=== PATIENT | female | born 1965 | race Caucasian/White ===

== ENCOUNTER 2017-05-25 11:48 | Inpatient (IN) | payer MEDICAID, OTHER ==
[2017-05-25] MEDS ORDERED: BISACODYL 10 MG SUPP PR PRN (13:36)
[2017-05-25] MEDS ORDERED: POLYETHYLENE GLYCOL 3350 17 GM PKT PO PRN (13:36)
[2017-05-25] MEDS ORDERED: ACETAMINOPHEN 325 MG TAB PO PRN (13:36)
[2017-05-25] MEDS ORDERED: MAGNESIUM HYDROXIDE 30 ML UDCUP PO PRN (13:36)
[2017-05-25] MEDS ORDERED: ONDANSETRON DISINTEGRATING 4 MG TAB PO PRN (13:36)
[2017-05-25] MEDS ORDERED: LACTULOSE 20 GM/30 ML UDCUP PO PRN (13:36)
[2017-05-25] MEDS ORDERED: ONDANSETRON 4 MG/2 ML VIAL IVP PRN (13:36)
[2017-05-25 14:13] LABS: PLATELET COUNT 246 10^3/uL (150-400)
[2017-05-25] MEDS ORDERED: IOPAMIDOL (ISOVUE-300) 100 ML BTL ONE (14:37)
[2017-05-25] MEDS: NS 1,000 ML IV SCH (15:45)
[2017-05-25] MEDS ORDERED: Rizatriptan Benzoate [Maxalt] 10 MG PO PRN (17:06)
[2017-05-25] MEDS ORDERED: GABAPENTIN 400 MG CAP PO PRN (17:06)
[2017-05-25] MEDS ORDERED: GABAPENTIN 300 MG CAP PO PRN (17:18)
[2017-05-25] MEDS ORDERED: ALBUTEROL 200 PUFFS/18 GM MDI IH PRN (17:30)
[2017-05-25] MEDS: oxyCODONE IR 15 MG TAB PO SCH ×2 (17:35→21:20)
--- NOTE | 2017-05-25 19:10 | SOAPPROG ---
SOAP Progress Note Assessment/Plan: Assessment: Plan: 05/25/17 19:17 Abdominal pain: Admitted for further evaluation. CT scan done earlier today suggestive of mass. Full report not yet dictated, but is not strongly suggestive of diverticulitis. Remains afebrile and WBC normal. Will contact GI tomorrow for colonoscopy. Will change to clear liquid diet. Heme positive stool: likely related to CT findings. No anemia on yesterday's labs, but mild anemia today, likely dilutional. TBI: remote hx, but she will have some difficulty speaking at times, especially when anxious. She has been on disability for many years. Takes Concerta 36mg 2 each morning, but that is not available here and she didn't bring in her own medication. Will try ritalin SR 40mg in the morning, which is about 1/2 the equivalent dose, per pharmacy, and see how she does. She reports that she hasn' t felt well on ritalin in the past, but that may have been the rapid acting form. Chronic pain: this is managed with oxycodone 15 mg qid, neurontin 300mg 3-4 times daily, and baclofen 20mg daily Migraine: currently without WILBURN. Takes Maxalt prn Depression: On Lexapro 20mg daily Anxiety: on clonazepam .5mg 1-2 tabs bid Asthma: well-controlled on QVAR with prn albuterol, which she rarely needs DVT Prophylaxis: will use SCDS Dispo: anticipate minimum of 2 MN 05/25/17 19:20 05/25/17 19:26 05/25/17 19:29 05/25/17 19:29 Subjective: 51 yo woman with hx chronic pain, TBI, anxiety, and depression was seen in the office yesterday c/o rectal bleeding. She had been having loose stool, with stool having a "shredded" appearance, with mucus and blood since , associated with significant abdominal pain, especially on the left side. Appetite was off and she had lost about 6 lbs. She felt nauseated, but hadn't vomited. She had chills but no fever. On exam, she looked ill, had diffuse abdominal pain, worse in the LLQ, and heme positive stool. An attempt was made to place an IV to give her some fluids and to do CT scan in the office, but we weren't able to get IV access. Offered hospital admission at the time, but she declined. She returned to the office today, and another attempt was made to obtain IV access, but was again unsuccessful, so she is being admitted for further evaluation due to ongoing abdominal pain. She hasn't had any diarrhea today. She did have a colonoscopy in 2010 that was normal, and didn't show diverticula. Her CBC and CMP in the office yesterday were normal. Objective: Vital Signs Temp Pulse Resp BP Pulse Ox 37.1 C 70 18 89/51 L 92 05/25/17 16:43 05/25/17 16:43 05/25/17 16:43 05/25/17 16:43 05/25/17 16:43 Laboratory Results 05/25/17 14:00 05/25/17 14:00 General: ill-appearing, in pain, NAD HEENT:NC/AT. Scalp without lesions. PERRL, EOMI. Auditory canals clear, TMs without erythema. Sinuses NT bilaterally. O/P moist, no lesions Neck: no cervical lymphadenopathy, thyroid NT Cardiovascular: RRR without murmur Lungs: clear bilaterally Breasts: no dimpling, fibrocystic texture without dominant mass, no nipple discharge Abdomen: normal bowel sounds present, soft, non-distended. Diffusely tender but worse in LLQ. No hepatosplenomegaly, mass noted Rectal: no external hemorrhoids, normal tone, no masses, stool maroon colored, heme positive Musculoskeletal: R hand with mild swelling in joints, no erythema Extremities: no clubbing, cyanosis, edema Neurologic: more alert today compared to yesterday, speech as times difficult to understand but no change from usual, moving all extremities Psychiatric: alert, oriented, cognitive function at baseline, mood/affect slightly dull for her ICD10 Worksheet Patient Problems: Problems Problem Status Onset Abdominal pain Acute
[2017-05-25] MEDS: BECLOMETHASONE QVAR 40 MDI IH SCH (20:05)
--- NOTE | 2017-05-25 20:25 | GHP ---
[f rep st] HISTORY AND PHYSICAL DATE OF ADMISSION: 05/25/2017 HISTORY OF PRESENT ILLNESS: The patient is a 51-year-old woman with a history of chronic pain, traum atic brain injury, anxiety and depression, who was seen in the office yesterday complaining of rectal bleeding. She had been having loose stool with stool having a "shredded" appearance with mucus and blood since , associated with significant abdominal pain, especially on the left side. Her appetite was off, and she had lost about 6 pounds. She felt nauseated but had not vomited. She had chills but no fever. On exam, she was ill-appearing and had diffuse abdominal pain, worse in the left lower quadrant, and heme-positive stool. An attempt was made to place an IV to give her some f luids and to do a CT scan in the office, but we were not able to obtain IV access. Offered hospital admission at the time, but she declined. She returned to the office today, and another attempt was m tennille to obtain IV access but was again unsuccessful, so she is being admitted for further evaluation d ue to ongoing abdominal pain. She has not had any diarrhea today but continues to feel nauseated. S he did have a colonoscopy in 2010 that was normal and did not show diverticula. Her CBC and CMP in t he office yesterday were normal. PAST MEDICAL HISTORY: Significant for anxiety, asthma, chronic bronchitis, chronic pain, depression, dystonia, GERD, head injury, migraine, rotator cuff syndrome, paresthesias, syncope. MEDICATIONS: Maxalt APPLICATION SUPPORT TECHNICIAN 10 mg dispersible on tongue as needed, QVAR 40 mcg 2 puffs by inhalation twi a day, gabapentin 300 mg p.o. t.i.d., baclofen 10 mg 2 tablets daily, Concerta 36 mg 2 tablets in the morning, oxycodone 15 mg q.i.d., Lexapro 20 mg daily, clonazepam 0.5 mg 1-2 tablets by mouth twic a day, albuterol inhaler 2 puffs every 4-6 hours as needed. ALLERGIES: Penicillin and Flexeril causes a headache. SURGICAL HISTORY: Bladder suspension, carpal tunnel release, foot surgery, hand surgery, ASHKAN-BSO. FAMILY HISTORY: Not obtained. SOCIAL HISTORY: The patient lives alone and is on disability. REVIEW OF SYSTEMS: GENERAL: No fever. She does acknowledge chills, weight loss, and fatigue. HEEN T: Decreased vision in the left eye. Right ear pain. No headache currently. No sinus congestion o r sore throat. Chronic rhinitis. CARDIAC: No chest pain, although she is noticing an occasional sh jadiel chest pain when her abdomen is particularly painful. No irregular heartbeats or chest pressure. LUNGS: No shortness of breath, but it does hurt to take a deep breath. No cough or wheezing. GI: Nausea without vomiting, as noted. Abdominal pain. Diarrhea as noted in HPI. No heartburn. Blood in the stool, as noted above : No dysuria or hematuria. MOOD: No depression or anxiety. She burgess s had some trouble sleeping due to pain. ENDOCRINE: No heat or cold intolerance. MUSCULOSKELETAL: She has chronic pain but is also noticing some swelling, in her right hand in particular, without er ythema. NEUROLOGIC: History of migraines, but no headache currently. Occasionally notices some num bness in her left leg. No tingling or weakness. SKIN: She has intermittent rashes and has noted so me on her scalp. BREASTS: No masses, but has noted some occasional milky nipple discharge. GYNECOL OGIC: No vaginal itching, odor, or bleeding. PHYSICAL EXAMINATION: VITAL SIGNS: Blood pressure is 100/72, heart rate 75, respiratory rate 20, O2 saturation 94% on room air, temperature 36.6. GENERAL: She is ill appearing, in pain, but no acute distress. HEENT: Normocephalic, atraumatic. Scalp without skin lesions. Pupils equal, round, ming ctive to light. Extraocular movements are intact. Auditory canals are clear. TMs without erythema. Sinuses are nontender bilaterally. Oropharynx is moist with no lesions. NECK: No cervical adenop athy. Thyroid nontender. CARDIOVASCULAR: Regular rate and rhythm without murmur. LUNGS: Clear bi laterally. BREASTS: No dimpling. Fibrocystic texture without dominant mass. No nipple discharge. ABDOMEN: Normal bowel sounds are present. Soft, nondistended. Diffusely tender, but worse in the left lower quadrant. No hepatosplenomegaly or mass noted. RECTAL: No external hemorrhoids. Normal tone. No masses. Stool maroon-colored and heme-positive. MUSCULOSKELETAL: Right hand with mild s welling in joints. No erythema. EXTREMITIES: No clubbing, cyanosis, or edema. NEUROLOGIC: More a lert today compared to yesterday. Speech at times is somewhat difficult to understand, but no change from usual. Moving all extremities. PSYCHIATRIC: Alert and oriented. Cognitive function at basel ine. Mood/affect is slightly dull for her. ASSESSMENT AND PLAN: 1. Abdominal pain. Admitted for further evaluation. CT scan done earlier today is suggestive of ma ss. Full report not yet dictated, but is not strongly suggestive of diverticulitis. She remains afe brile, and white blood cell count is normal. Will contact GI tomorrow for colonoscopy. Will change her to clear liquid diet tonight. 2. Heme-positive stool, likely related to CT findings. No anemia on yesterday's labs, but mildly an emic today, likely dilutional. 3. Traumatic brain injury. Remote history, but she will sometimes have difficulty speaking, especia lly when she is anxious. She has been on disability for many years. She takes Concerta 36 mg 2 tabl ets every morning, but that is not available, and she did not bring in her own medication. The Katharine rta helps her focus. Will try substituting Ritalin SR 40 mg in the morning, which is about half the equivalent dose per pharmacy of her 2 tabs of Concerta. Will see how she does with it. She reports that she has not felt well on Ritalin in the past, but that may have been the rapid-acting form. 4. Chronic pain. This is managed with oxycodone 15 mg q.i.d., Neurontin 300 mg 3-4 times a day, and baclofen 20 mg daily. 5. Migraine. Currently without headache. Maurilio works p.r.n. 6. Depression. On Lexapro 20 mg daily. Will continue. 7. Anxiety. On clonazepam 0.5 mg 1-2 tablets twice daily. 8. Asthma. Well controlled on QVAR with p.r.n. albuterol, which she rarely needs. 9. Deep venous thrombosis prophylaxis. Will use sequential compression stockings. DISPOSITION: Anticipate minimum of 2-midnight stay. /[id number]/MODL
[2017-05-25] MEDS: GABAPENTIN 300 MG CAP PO SCH (21:19)
[2017-05-25] MEDS: clonazePAM 1 MG TAB PO SCH (21:19)
[2017-05-25] MEDS: BACLOFEN 10 MG TAB PO SCH (21:19)
[2017-05-25] MEDS: SENNOSIDES/DOCUSATE SODIUM TAB PO SCH (21:21)
[2017-05-26] MEDS: NS 1,000 ML IV SCH ×4 (04:23→19:36)
[2017-05-26 04:50] LABS: PLATELET COUNT 243 10^3/uL (150-400)
[2017-05-26] MEDS: oxyCODONE IR 15 MG TAB PO SCH ×5 (05:39→21:07)
[2017-05-26] MEDS: ESCITALOPRAM OXALATE 10 MG TAB PO SCH (08:24)
[2017-05-26] MEDS: GABAPENTIN 300 MG CAP PO SCH ×3 (08:24→21:07)
[2017-05-26] MEDS: clonazePAM 1 MG TAB PO SCH ×2 (08:24→21:08)
[2017-05-26] MEDS: SENNOSIDES/DOCUSATE SODIUM TAB PO SCH ×2 (08:28→21:11)
[2017-05-26] MEDS ORDERED: NON-FORMULARY NEW DRUG (Escitalopram Oxalate [Lexapro] 20 MG) PO SCH (09:00)
[2017-05-26] MEDS ORDERED: METHYLPHENIDATE SR 20 MG TAB.SR PO SCH (09:00)
[2017-05-26] MEDS: BECLOMETHASONE QVAR 40 MDI IH SCH ×2 (09:02→21:34)
--- NOTE | 2017-05-26 09:10 | SOAPPROG ---
SOAP Progress Note Assessment/Plan: Assessment: Plan: 05/25/17 19:17 Abdominal pain: Admitted for further evaluation. CT scan done earlier today suggestive of mass. Full report not yet dictated, but is not strongly suggestive of diverticulitis. Remains afebrile and WBC normal. Will contact GI tomorrow for colonoscopy. Will change to clear liquid diet. Heme positive stool: likely related to CT findings. No anemia on yesterday's labs, but mild anemia today, likely dilutional. TBI: remote hx, but she will have some difficulty speaking at times, especially when anxious. She has been on disability for many years. Takes Concerta 36mg 2 each morning, but that is not available here and she didn't bring in her own medication. Will try ritalin SR 40mg in the morning, which is about 1/2 the equivalent dose, per pharmacy, and see how she does. She reports that she hasn' t felt well on ritalin in the past, but that may have been the rapid acting form. Chronic pain: this is managed with oxycodone 15 mg qid, neurontin 300mg 3-4 times daily, and baclofen 20mg daily Migraine: currently without WILBURN. Takes Maxalt prn Depression: On Lexapro 20mg daily Anxiety: on clonazepam .5mg 1-2 tabs bid Asthma: well-controlled on QVAR with prn albuterol, which she rarely needs DVT Prophylaxis: will use SCDS Dispo: anticipate minimum of 2 MN 05/25/17 19:20 05/25/17 19:26 05/25/17 19:29 05/25/17 19:29 05/26/17 09:10 Abdominal pain: somewhat worse this morning. CT scan concerning for malignancy. Am waiting for call back from GI to advise of consult request. Will also ask surgery to consult. TBI: Would like her Concerta, which helps her make decisions. She will have her friend bring it in from home. Subjective: LLQ pain is increased this morning. Nauseated but not vomiting. Having mucoid BM without much stool. Had her dose of oxycodone this morning and it didn't change her pain. Substituted methylphenidate ER for Concerta but she refused it. Doesn't like how she feels with it. Objective: Vital Signs Temp Pulse Resp BP Pulse Ox 36.5 C 61 18 112/67 94 05/26/17 08:00 05/26/17 08:00 05/26/17 08:00 05/26/17 08:00 05/26/17 08:00 Laboratory Results 05/26/17 04:19 05/25/17 14:00 05/25/17 05/26/17 05/27/17 05:59 05:59 05:59 Intake Total 500 Balance 500 General: awake, alert, tearful, in pain Lungs: clear Cardiovascular: RRR with occasional ectopy Abdomen: positive bowel sounds, soft, non-distended. Diffusely tender, worst in LLQ Extremities: no edema ICD10 Worksheet Patient Problems: Problems Problem Status Onset Abdominal pain Acute
--- NOTE | 2017-05-26 14:59 | GCON ---
[f rep st] CONSULTATION DATE OF CONSULTATION: 05/26/2017 CHIEF COMPLAINT: LLQ abdominal pain with suspicious mass on CT scan with bloody stools. HISTORY OF PRESENT ILLNESS: This is a 51-year-old female, who is admitted to the hospital, now hospital day 2, with abdominal pain and a mass finding on a CT scan. Briefly, the patient states that over the last month she has had increasing malaise and fatigue, culminating to the point where she has had worsening nausea and vomiting, and now over the past few days with differing stool appearances, complaining of blood and mucus since Lisa in her stools, having a shredded appearance. Patient initially contacted the on-call doctor, who happened to be her PCP, and saw her in clinic. The patient also has home care seeing her, given her underlying medical illnesses. It was recommended that she go to the emergency department on , but she refused given the holiday and subsequently went the day after. At any rate, since being here she states that her pain is a little bit better controlled. She states that she is no longer passing any blood per rectum, but is still having yellow mucus and clear fluid when she has bowel movements. Her pain is rated as a 4/10 in the left lower quadrant without radiation, better with inactivity and better with bowel rest. The pain is described as burning sensation. Other than the pain and complaints of now mucus and yellow discharge from her rectum, she has no complaints. She currently denies having nausea or vomiting, and states that she has not had any fevers or chills. PAST MEDICAL HISTORY: Anxiety, asthma, chronic bronchitis, chronic pain, depression, dystonia, GERD, history of traumatic brain injury, migraines, rotator cuff syndrome, paresthesias, and syncope. PAST SURGICAL HISTORY: Bladder suspension, carpal tunnel release, foot surgery , hand surgery, and a total abdominal hysterectomy with bilateral salpingo- oophorectomy. No previous history of colon surgery. She did have a colonoscopy in 2010 that was done for abdominal pain, which was normal. CURRENT MEDICATIONS: Reviewed in [facility]. ALLERGIES: Penicillin and Flexeril. SOCIAL HISTORY: Lives alone and on disability given her traumatic brain injury. Denies illicit drug use. FAMILY HISTORY: She believes that she had an aunt who had breast cancer, but is pretty certain that she had no primary relatives with any colorectal cancer. REVIEW OF SYSTEMS: A full 10-point review was performed and, unless explicitly stated above, is otherwise negative. PHYSICAL EXAMINATION: VITAL SIGNS: Blood pressure 112/67, heart rate 61, she is 94% on room air, and her temperature is 36.5. CONSTITUTIONAL: She is in no apparent distress. She appears comfortable. EYES: Her pupils are equal, round , and reactive to light and accommodation. Her extraocular movements are intact. EARS, NOSE, MOUTH, THROAT: She has dry mucous membranes. Her hearing is normal. Her speech is somewhat slurred secondary to her head injury. CARDIOVASCULAR: She has a regular rate and rhythm without murmur. RESPIRATORY : She is clear to auscultation bilaterally without distress. GI: She has normoactive bowel sounds. She is soft, nondistended. She is minimally tender in the left lower quadrant, without rebound tenderness or guarding. RECTAL: Examination was performed. I do not appreciate any masses or any blood on my examining finger. Rectal tone is normal. Hemorrhoids normal. No fissures. SKIN: Warm. Normal color. No rashes or abrasions. Multiple tattoos on her upper extremities. MUSCULOSKELETAL: Full strength. No weakness. Normal joint range of motion. NEUROLOGIC: She is alert and oriented x3. Her cranial nerves 2-12 are intact. She has no weakness, no numbness. PSYCH: She is interacting appropriately. She does not appear anxious. She is not encephalopathic. LYMPH/HEME/IMMUNOLOGIC: There is no cervical, groin, or supraclavicular lymphadenopathy appreciated. LABS: White blood cell count normal at 6. H and H stable at 12 and 35. Chemistry is largely unremarkable. CT scan of the abdomen and pelvis performed yesterday, the images of which were personally reviewed, show really limited findings. She did receive oral contrast. There does appear to be a thickening in the sigmoid colon. There does not appear to be any surrounding diverticular disease in any of the colon really. ASSESSMENT AND PLAN: A 51-year-old female with bleeding per rectum and suspicious findings on CT scan. I discussed my physical exam findings with the patient today, and did tell her that she would need further studies to better elucidate what is going on. I did tell her that the first step would be preparation for colonoscopy, as a colonoscopy would give us a better idea as to what this is, and would also be able to give us biopsies to give us a tissue diagnosis. I told her that at this point in time she does not appear obstructed and/or have any complication from this mass, but that if it is worrisome and/or if the pathology would prove cancer, she would need resection, and we briefly discussed this today. All questions were answered. I will plan to follow up with her once the colonoscopy is completed, but don't feel as though urgent surgical intervention is warranted as the patient is stable, and has no worrisome findings (free air, impending obstruction) on her CT scan. /[id number]/MODL MTDD
--- NOTE | 2017-05-26 16:05 | ASMTCMCOM ---
CM Note CM Note Notes: Pt admitted for abd pain. Ct scan suggestive of mass. Colonoscopy is planned tomorrow. C/M will continue to follow for DC needs. Date Signed: 05/26/2017 04:04 PM Electronically Signed By:Leti Acosta LCSW
[2017-05-26] MEDS ORDERED: PEG 3350/NA SULF,BICARB,CL/KCL (GAVILYTE-G) 4000 ML BTL PO ONE (20:00)
--- NOTE | 2017-05-26 20:15 | GCON ---
[f rep st] CONSULTATION DATE OF CONSULTATION: 05/26/2017 REFERRING PHYSICIAN: Isela Hampton MD CHIEF COMPLAINT: Abdominal pain. Dear Dr. Hampton: Thank you very kindly for asking me to evaluate the patient for abdominal pain. She is a very pleasa nt, 51-year-old female with a history of chronic pain and a traumatic brain injury, who presents with episodes of bright red hematochezia, left lower quadrant abdominal pain, and a recent CT scan that s hows some sigmoid colonic thickening. She did have a colonoscopy in 2010 for screening which was unr emarkable. There is no family history of colon cancer. She says the bleeding has now stopped but sh e continues to have some mild left-sided discomfort associated with urgency, tenesmus, and the passag e of mucus but no stool. She says she feels a bit bloated. There has been no nausea, vomiting, or f ever. She denies any recent antibiotics. I am asked to assist with further evaluation and managemen t. PAST MEDICAL HISTORY: 1. Significant for chronic pain. 2. Traumatic brain injury. 3. Anxiety. 4. Depression. 5. Heartburn. 6. Chronic migraine headaches. PAST SURGICAL HISTORY: ASHKAN/BSO for ovarian cystic disease, carpal tunnel release, and bladder suspen monika. MEDICATIONS: On admission include Maxalt, QVAR, gabapentin, baclofen, Concerta, clonazepam, oxycodon e, albuterol. ALLERGIES: Penicillin, Flexeril. FAMILY HISTORY: Negative for colon cancer, diverticular disease or colitis. SOCIAL HISTORY: The patient is on disability. She lives alone. No active tobacco or substance abus e. REVIEW OF SYSTEMS: GENERAL: 6-pound weight loss in the last month. HEENT/NECK: Chronic headaches. No active headache. No neck pain. No difficulty swallowing. No epistaxis. No rhinorrhea. No to ngue pain or dry mouth. PULMONARY: No cough or shortness of breath. CARDIOVASCULAR: No chest pain or palpitations. GI: She denies heartburn actively or dysphagia, but does have a history of heartb urn. There is some nausea but no vomiting. She denies any melena otherwise per the HPI. Rheumatolo gic: Significant for chronic musculoskeletal pain. GENITOURINARY: Denies hematuria or dysuria. GREG MATOLOGIC: Denies rash, jaundice. ENDOCRINE: Denies heat or cold intolerance. PSYCHIATRIC: She r eports a history of depression or anxiety but feels safe and pretty normal, and at her baseline menta lly and emotionally. HEMATOLOGIC: No epistaxis or bruising. LYMPH: Denies any glandular swelling. PHYSICAL EXAM: VITAL SIGNS: Blood pressure 112/67, heart rate is 61, respirations are 18, temperatu re 36.5, oxygenation is 94% on room air. GENERAL: Thin female in no acute distress. HEENT: Normoce phalic, atraumatic. Sclerae are anicteric. Oropharynx clear. Mucous membranes are dry. NECK: Sup ple. No adenopathy or carotid bruit. No thyromegaly. PULMONARY: Clear to auscultation bilaterally with good respiratory exchange. No rales or wheeze. CARDIOVASCULAR: Regular rate and rhythm without murmur, rub, or gallop. GI: There is tenderness to palpation in the left lower quadrant that is mild without rebound or guarding. No palpable mass or lesion. Bowel sounds are normoactive. The abdomen is nondistended. No ascites, organomegaly or bru it. MUSCULOSKELETAL: Normal gait and station without joint deformity, swelling or warmth. DERMATOL OGIC: Tattoos but no jaundice or rash. NEURO: Alert to person, place, and time. Cranial nerves no rmal. Motor nonfocal. No asterixis. DATABASE: Includes the following laboratory: White count 6.4, hematocrit 34.9, MCV is 90, platelets are 243. Sodium 144, potassium 4.8, chloride 109, bicarbonate 29, BUN 6, creatinine 0.6, glucose 84 , total bilirubin 0.3, calcium 9.7, AST 21, ALT 33, alkaline phosphatase 46, total protein 6.0, album in 3.8. IMAGING: Includes a CT scan of the abdomen and pelvis on May 25, 2017: Findings reveal the josey er is normal without lesion. The bile ducts are not dilated. The gallbladder is without stones or s ludge and no wall thickening. The spleen is normal. The pancreas is unremarkable without mass or du ctal dilatation. There is mild thickening of the left adrenal gland without a nodule. There are 2 s ites of focal wall thickening in the sigmoid colon without pericolonic stranding. There are no abnor belen dilated loops of bowel. No adenopathy. IMPRESSION: 1. Left lower quadrant abdominal pain. 2. Hematochezia. 3. Weight loss. 4. Abnormal CT scan showing mild thickening of the sigmoid colon. RECOMMENDATIONS: 1. A clear liquid diet today. 2. Gallon GoLYTELY prep in split fashion. 3. Colonoscopy with anesthesia tomorrow in the early afternoon. 4. N.p.o. after clear liquid breakfast and bowel cleanse completed. 5. I believe she likely has either a false positive radiographic finding of colonic thickening or pe rhaps the other type of "colitis" could be ischemic. It is unlikely that she has malignancy represen ting this, but I cannot completely exclude this possibility. 6. Further recommendations to follow her colonoscopy tomorrow. 7. The patient is agreeable to the plan. /[id number]/MODL
[2017-05-26] MEDS: BACLOFEN 10 MG TAB PO SCH (21:08)
[2017-05-27] MEDS: NS 1,000 ML IV SCH ×2 (02:52→09:16)
[2017-05-27] MEDS: oxyCODONE IR 15 MG TAB PO SCH ×4 (05:18→20:51)
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
[2017-05-27] MEDS: BECLOMETHASONE QVAR 40 MDI IH SCH ×2 (08:02→20:59)
[2017-05-27] MEDS: ESCITALOPRAM OXALATE 10 MG TAB PO SCH (09:06)
[2017-05-27] MEDS: SENNOSIDES/DOCUSATE SODIUM TAB PO SCH ×2 (09:07→23:45)
[2017-05-27] MEDS: clonazePAM 1 MG TAB PO SCH ×2 (09:07→20:51)
[2017-05-27] MEDS: GABAPENTIN 300 MG CAP PO SCH ×3 (09:07→20:51)
[2017-05-27] MEDS ORDERED: LR 1,000 ML IV ONE (13:03)
[2017-05-27] MEDS ORDERED: fentaNYL 100 MCG/2 ML INJ ONE (13:40)
[2017-05-27] MEDS ORDERED: DIAZEPAM 10 MG/2 ML SYR IVP PRN (13:48)
[2017-05-27] MEDS ORDERED: fentaNYL 100 MCG/2 ML INJ IVP PRN (13:48)
[2017-05-27] MEDS ORDERED: DEXAMETHASONE 4 MG/ML VIAL IVP PRN (13:48)
[2017-05-27] MEDS ORDERED: ONDANSETRON 4 MG/2 ML VIAL IVP PRN (13:48)
[2017-05-27] MEDS ORDERED: NALOXONE HCL 0.4 MG/ML INJ IVP PRN (13:48)
--- NOTE | 2017-05-27 13:48 | PDANEPAE ---
ANE Past Medical History - Pulmonary History Hx Oxygen in Use at Home: No Hx Sleep Apnea: No Sleep Apnea Screening Result - Last Documented: Positive - Endocrine History Hx Diabetes: No - Chronic Pain History Chronic Pain: Yes ANE Review of Systems Review of Systems: ANE Patient History - Allergies Allergies/Adverse Reactions: cyclobenzaprine Allergy (Verified 05/25/17 13:34) Penicillins Allergy (Verified 05/25/17 13:34) - Home Medications Home Medications: Albuterol [Proventil Inhaler HFA (*)] 2 puffs IH Q4-6PRN PRN 05/25/17 [Last Taken Unknown] Baclofen [Baclofen 10 mg (*)] 20 mg PO HS 05/25/17 [Last Taken 05/24/17] Beclomethasone Qvar 40 [Qvar 40 (*)] 2 puffs IH BID 05/25/17 [Last Taken ] Escitalopram Oxalate [Lexapro] 20 mg PO DAILY 05/25/17 [Last Taken 05/25/17] Gabapentin [Neurontin 400 MG (*)] 1,200 - 1,800 mg PO HS PRN 05/25/17 [Last Taken 05/24/17] Rizatriptan Benzoate [Maxalt 10mg] 10 mg PO ONETIMEPRN PRN 05/25/17 [Last Taken Unknown] clonazePAM [klonoPIN (*)] 0.5 - 1 mg PO TID 05/25/17 [Last Taken 05/25/17] oxyCODONE IR [Oxycodone Ir (*)] 15 mg PO QID 05/25/17 [Last Taken 05/25/17] - NPO status NPO Since - Liquids (Date): 05/27/17 NPO Since - Liquids (Time): 12:32 NPO Since - Solids (Date): 05/26/17 NPO Since - Solids (Time): 18:00 - Smoking Hx Smoking Status: Current some day smoker ANE Labs/Vital Signs - Labs Result Diagrams: 05/26/17 04:19 05/25/17 14:00 - Vital Signs Blood Pressure: 127/68 Heart Rate: 80 Respiratory Rate: 16 O2 Sat (%): 94 Height: 157.48 cm Weight: 46.72 kg ANE Physical Exam - Airway Neck exam: FROM Mallampati Score: Class 1 Mouth exam: dentures - Pulmonary Pulmonary: no respiratory distress, no rales or rhonchi, reduced air movement - Cardiovascular Cardiovascular: regular rate and rhythym, no murmur, rub, or gallop - ASA Status ASA Status: III ANE Anesthesia Plan Anesthesia Plan: GA with mask
[2017-05-27] MEDS ORDERED: LIDOCAINE 2% 5 ML SDV ONE (13:56)
[2017-05-27] MEDS ORDERED: epHEDrine SULFATE 10 MG/ML SYR ONE (13:56)
--- NOTE | 2017-05-27 14:05 | GIREPORT ---
Formerly [facility] Surgical Services - Endoscopy Department Patient Name: Roxanne Barrios Procedure Date: 05/27/2017 1:20 PM Patient Type: Outpatient Attending MD/ ER Physician: Jeff Weber MD Procedure: Colonoscopy Indications: Abdominal pain in the left lower quadrant, Abnormal CT of the GI tract Providers: Jeff Weber MD Medicines: Propofol per Anesthesia Complications: No immediate complications. Description of Procedure: After obtaining informed consent, the scope was passed under direct vis ion. Throughout the procedure, the patient's blood pressure, pulse, and oxyg en saturations were monitored continuously. The Colonoscope was introduced through the anus and advanced to the cecum, identified by appendiceal orifice and ileocecal valve. The colonoscopy was performed without difficulty. The patient tolerated the procedure well. The quality of th e bowel preparation was excellent. The ileocecal valve, appendiceal orifi ce, and rectum were photographed. Findings: The perianal and digital rectal examinations were normal. Pertinent negatives include normal sphincter tone and no palpable rectal lesions. A segmental area of moderately congested, erythematous, eroded and gran ular mucosa was found in the sigmoid colon. Biopsies were taken with a cold forceps for histology. The exam was otherwise without abnormality. Estimated Blood Loss: Estimated blood loss: none. Post Op Diagnosis: - Congested, erythematous, eroded and granular mucosa in the sigmoid co adeola. Biopsied. - The examination was otherwise normal. - I feel the findings are most consistent with ischemic colitis. Will n eed to await biopsy results. Recommendation: - Await pathology results. - Return patient to hospital li for ongoing care. - Advance diet as tolerated. - Ok for discharge once stable. - Thank you for allowing me to be involved in the care of your patient. Attending Participation: I personally performed the entire procedure without the assistance of a fellow, resident or surg ical fitter's assistant. Jeff Weber MD Jeff Weber MD 05/27/2017 2:04:28 PM This report has been signed electronicallyDavid MD Tia Number of Addenda: 0 Note Initiated On: 05/27/2017 1:20 PM Total Procedure Duration Time 0 hours 15 minutes 58 seconds [email or web address]
--- NOTE | 2017-05-27 14:17 | POSTANESTH ---
Post Anesthetic Evaluation Cardiovascular Status: Normal, Stable Respiratory Status: Normal, Stable Level of Consciousness/Mental Status: Can Participate in Eval Pain Control: Adequate, Prn Tx Ordered Nausea/Vomiting Control: Adequate, Prn Tx Ordered Complications Possibly Related to Anesthesia: None Noted
[2017-05-27] MEDS: BACLOFEN 10 MG TAB PO SCH (20:52)
[2017-05-28] MEDS: oxyCODONE IR 15 MG TAB PO SCH ×4 (04:46→22:07)
[2017-05-28] MEDS: clonazePAM 1 MG TAB PO SCH ×2 (08:43→22:08)
[2017-05-28] MEDS: GABAPENTIN 300 MG CAP PO SCH ×3 (08:43→22:08)
[2017-05-28] MEDS: ESCITALOPRAM OXALATE 10 MG TAB PO SCH (08:43)
[2017-05-28] MEDS: BECLOMETHASONE QVAR 40 MDI IH SCH ×2 (08:45→20:15)
--- NOTE | 2017-05-28 09:53 | SOAPPROG ---
SOAP Progress Note Assessment/Plan: Assessment: Colon inflammation on endoscopy, biopsy pending. Plan: Await biopsy. Continue with support. ;Advance diet. Ambulate. 05/28/17 09:52 Subjective: Having some soreness from the colonoscopy, however generally doing OK. Was able to eat breakfast this morning. Objective: Vital Signs Temp Pulse Resp BP Pulse Ox 98.0 F 54 L 14 122/64 H 94 05/28/17 09:00 05/28/17 09:00 05/28/17 09:00 05/28/17 09:00 05/28/17 09:00 Laboratory Results 05/26/17 04:19 05/25/17 14:00 05/27/17 05/28/17 05/29/17 05:59 05:59 05:59 Intake Total 850 2538 Balance 850 2538 Lungs clear to asc. COR RRR. Abd mildly sore. ICD10 Worksheet Patient Problems: Problems Problem Status Onset Abdominal pain Acute
[2017-05-28] MEDS: SENNOSIDES/DOCUSATE SODIUM TAB PO SCH ×2 (10:45→22:08)
[2017-05-28] MEDS: BACLOFEN 10 MG TAB PO SCH (22:07)
[2017-05-29] MEDS: oxyCODONE IR 15 MG TAB PO SCH ×4 (06:32→22:44)
[2017-05-29] MEDS: BECLOMETHASONE QVAR 40 MDI IH SCH ×2 (08:32→22:25)
--- NOTE | 2017-05-29 09:13 | SOAPPROG ---
SOAP Progress Note Assessment/Plan: Assessment: 51 year old with abdominal pain Thickening of sigmoid on CT Colonoscopy with changes more consistent with ischemia Biopsies pending I think she will likely need surgical intervention as she complains of string stools and has persistent pain. Will await biopsy results S: Not hungry. Some cramping after eating General: Pleasant woman lying in bed HENT: Normocephalic, no gross hearing deficits, pupils equal and round, no scleral icterus Lungs: Clear to auscultation bilaterally, No increased work of breathing Cardiac: Regular rate, no peripheral edema Abdomen: Bowel sounds present, soft, tender in LLQ Skin: Warm and dry. Psych: Mood and affect normal, slightly blunted Neuro: Grossly intact Plan: 05/29/17 09:11 05/29/17 09:14 Objective: Vital Signs Temp Pulse Resp BP Pulse Ox 36.8 C 52 L 16 106/65 91 L 05/29/17 08:52 05/29/17 08:52 05/29/17 08:52 05/29/17 08:52 05/29/17 08:52 Laboratory Results 05/26/17 04:19 05/25/17 14:00 05/28/17 05/29/17 05/30/17 05:59 05:59 05:59 Intake Total 2538 1200 Balance 2538 1200 ICD10 Worksheet Patient Problems: Problems Problem Status Onset Abdominal pain Acute
[2017-05-29] MEDS: clonazePAM 1 MG TAB PO SCH ×2 (09:33→22:44)
[2017-05-29] MEDS: ESCITALOPRAM OXALATE 10 MG TAB PO SCH (09:33)
[2017-05-29] MEDS: GABAPENTIN 300 MG CAP PO SCH ×3 (09:33→22:44)
[2017-05-29] MEDS: SENNOSIDES/DOCUSATE SODIUM TAB PO SCH ×2 (09:33→22:44)
--- NOTE | 2017-05-29 09:37 | ASMTCMCOM ---
CM Note CM Note Notes: 05/29/2017 Case Management Note Reviewed chart. Case Management d/c needs remain unclear. Pt may require surgical intervention pending biopsy results. There are no PT or OT evals ordered at this time. Case Management d/c poc: TBD Case Management to follow. Date Signed: 05/29/2017 09:37 AM Electronically Signed By:Heather Brownlee RN
--- NOTE | 2017-05-29 11:25 | SOAPPROG ---
SOAP Progress Note Assessment/Plan: Assessment: Colon inflammation on endoscopy, biopsy pending. Plan: Await biopsy. Continue with support. ;Advance diet. Ambulate. 05/28/17 09:52 Subjective: Still having pain. No BM for a couple of days. Appetite is OK but not great. Objective: Vital Signs Temp Pulse Resp BP Pulse Ox 98.2 F 52 L 16 106/65 91 L 05/29/17 08:52 05/29/17 08:52 05/29/17 08:52 05/29/17 08:52 05/29/17 08:52 Laboratory Results 05/26/17 04:19 05/25/17 14:00 05/28/17 05/29/17 05/30/17 05:59 05:59 05:59 Intake Total 2538 1200 250 Balance 2538 1200 250 Lungs clear to asc. COR RRR. Abd with bowel sounds, however tender over RLQ. BIopsy pendin. ICD10 Worksheet Patient Problems: Problems Problem Status Onset Abdominal pain Acute
[2017-05-29] MEDS: BACLOFEN 10 MG TAB PO SCH (22:44)
[2017-05-30] MEDS: oxyCODONE IR 15 MG TAB PO SCH ×4 (06:36→20:24)
[2017-05-30] MEDS: SENNOSIDES/DOCUSATE SODIUM TAB PO SCH ×2 (09:24→23:11)
[2017-05-30] MEDS: clonazePAM 1 MG TAB PO SCH ×2 (09:24→20:24)
[2017-05-30] MEDS: GABAPENTIN 300 MG CAP PO SCH ×3 (09:24→20:25)
[2017-05-30] MEDS: ESCITALOPRAM OXALATE 10 MG TAB PO SCH (09:24)
--- NOTE | 2017-05-30 09:39 | SOAPPROG ---
SOAP Progress Note Assessment/Plan: Assessment: 51 year old with abdominal pain Thickening of sigmoid on CT Colonoscopy with changes more consistent with ischemia Biopsies pending S: Still some cramping after food. General: Pleasant woman sitting up and appears much better Plan: 05/29/17 09:11 05/29/17 09:14 05/30/17 09:38 Objective: Vital Signs Temp Pulse Resp BP Pulse Ox 36.7 C 56 L 16 106/63 92 05/30/17 08:00 05/30/17 08:00 05/30/17 08:00 05/30/17 08:00 05/30/17 08:00 Laboratory Results 05/26/17 04:19 05/25/17 14:00 05/29/17 05/30/17 05/31/17 05:59 05:59 05:59 Intake Total 1200 4100 Balance 1200 4100 ICD10 Worksheet Patient Problems: Problems Problem Status Onset Abdominal pain Acute
[2017-05-30] MEDS: BECLOMETHASONE QVAR 40 MDI IH SCH ×2 (11:23→19:56)
--- NOTE | 2017-05-30 19:11 | SOAPPROG ---
SOAP Progress Note Assessment/Plan: Assessment: Colon inflammation on endoscopy, biopsy pending. Plan: Await biopsy. Continue with support. ;Advance diet. Ambulate. 05/28/17 09:52 Subjective: pain is a little worse today. Objective: Vital Signs Temp Pulse Resp BP Pulse Ox 97.9 F 64 16 129/76 H 94 05/30/17 16:05 05/30/17 16:05 05/30/17 16:05 05/30/17 16:05 05/30/17 16:05 Laboratory Results 05/26/17 04:19 05/25/17 14:00 05/29/17 05/30/17 05/31/17 05:59 05:59 05:59 Intake Total 1200 4100 250 Balance 1200 4100 250 Lungs clear. there is some LLQ abdominal pain with percussion of posterior pelvis. COR RRR ICD10 Worksheet Patient Problems: Problems Problem Status Onset Abdominal pain Acute
[2017-05-30] MEDS: BACLOFEN 10 MG TAB PO SCH (20:24)
[2017-05-31] MEDS: oxyCODONE IR 15 MG TAB PO SCH ×4 (05:49→20:07)
[2017-05-31] MEDS: SENNOSIDES/DOCUSATE SODIUM TAB PO SCH ×2 (08:27→22:21)
[2017-05-31] MEDS: ESCITALOPRAM OXALATE 10 MG TAB PO SCH (08:27)
[2017-05-31] MEDS: clonazePAM 1 MG TAB PO SCH ×2 (08:27→20:07)
[2017-05-31] MEDS: GABAPENTIN 300 MG CAP PO SCH ×3 (08:28→20:07)
--- NOTE | 2017-05-31 09:00 | SOAPPROG ---
SOS[facility] Progress Note Assessment/Plan: Assessment/Plan: - LLQ pain persists, biopsies pending - Path results will help guide surgery oncologic versus non. But if her pain doesnt improve will need resection for that reason alone. 05/31/17 08:59 Subjective: Still having a significant amount of abdominal pain Objective: Vital Signs Temp Pulse Resp BP Pulse Ox 36.7 C 50 L 14 92/54 L 95 05/31/17 05:43 05/31/17 05:43 05/31/17 05:43 05/31/17 05:43 05/31/17 05:43 Laboratory Results 05/26/17 04:19 05/25/17 14:00 05/30/17 05/31/17 06/01/17 05:59 05:59 05:59 Intake Total 4100 1250 Balance 4100 1250 ICD10 Worksheet Patient Problems: Problems Problem Status Onset Abdominal pain Acute
[2017-05-31] MEDS: BECLOMETHASONE QVAR 40 MDI IH SCH ×2 (09:55→21:11)
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
[2017-05-31] MEDS ORDERED: Rizatriptan Benzoate [Maxalt] 10 MG PO PRN (16:00)
[2017-05-31] MEDS: BACLOFEN 10 MG TAB PO SCH (20:07)
[2017-05-31] MEDS: LORazepam 1 MG TAB PO ONE ×2 (20:49→20:51)
[2017-05-31] MEDS ORDERED: DIAZEPAM 2 MG TAB PO ONE (21:00)
[2017-05-31] MEDS ORDERED: oxyCODONE IR 5 MG TAB PO PRN (21:10)
[2017-06-01] MEDS: oxyCODONE IR 15 MG TAB PO SCH ×3 (05:34→17:10)
--- NOTE | 2017-06-01 09:13 | SOAPPROG ---
SOAP Progress Note Assessment/Plan: Assessment: Plan: 05/25/17 19:17 Abdominal pain: Admitted for further evaluation. CT scan done earlier today suggestive of mass. Full report not yet dictated, but is not strongly suggestive of diverticulitis. Remains afebrile and WBC normal. Will contact GI tomorrow for colonoscopy. Will change to clear liquid diet. Heme positive stool: likely related to CT findings. No anemia on yesterday's labs, but mild anemia today, likely dilutional. TBI: remote hx, but she will have some difficulty speaking at times, especially when anxious. She has been on disability for many years. Takes Concerta 36mg 2 each morning, but that is not available here and she didn't bring in her own medication. Will try ritalin SR 40mg in the morning, which is about 1/2 the equivalent dose, per pharmacy, and see how she does. She reports that she hasn' t felt well on ritalin in the past, but that may have been the rapid acting form. Chronic pain: this is managed with oxycodone 15 mg qid, neurontin 300mg 3-4 times daily, and baclofen 20mg daily Migraine: currently without WILBURN. Takes Maxalt prn Depression: On Lexapro 20mg daily Anxiety: on clonazepam .5mg 1-2 tabs bid Asthma: well-controlled on QVAR with prn albuterol, which she rarely needs DVT Prophylaxis: will use SCDS Dispo: anticipate minimum of 2 MN 05/25/17 19:20 05/25/17 19:26 05/25/17 19:29 05/25/17 19:29 05/26/17 09:10 Abdominal pain: somewhat worse this morning. CT scan concerning for malignancy. Am waiting for call back from GI to advise of consult request. Will also ask surgery to consult. TBI: Would like her Concerta, which helps her make decisions. She will have her friend bring it in from home. 06/01/17 09:11 Abdominal pain: persistant, not so well managed by her usual oxycodone regimen, but worried about taking more and then potentially withdrawing once she goes home. Will talk with Dr. Hairston today regarding potential for surgery. 06/01/17 09:13 Subjective: Tearful and frustrated this morning. Continues to have abdominal pain. Pathology not that remarkable, but pain persists. Stools now mostly mucus. Objective: Vital Signs Temp Pulse Resp BP Pulse Ox 36.5 C 62 12 97/42 L 92 05/31/17 15:04 05/31/17 15:04 05/31/17 21:12 05/31/17 15:04 05/31/17 21:12 Laboratory Results 05/26/17 04:19 05/25/17 14:00 05/31/17 06/01/17 06/02/17 05:59 05:59 05:59 Intake Total 1250 1100 Balance 1250 1100 General: awake, alert, tearful Lungs: clear CV: RRR without murmur Abdomen: +bowel sounds, soft, tender LLQ Extremities: no edema ICD10 Worksheet Patient Problems: Problems Problem Status Onset Abdominal pain Acute
[2017-06-01 09:49] VITALS: RESP 16
[2017-06-01] MEDS: GABAPENTIN 300 MG CAP PO SCH ×2 (10:12→17:10)
[2017-06-01] MEDS: clonazePAM 1 MG TAB PO SCH (10:12)
[2017-06-01] MEDS: SENNOSIDES/DOCUSATE SODIUM TAB PO SCH (10:12)
[2017-06-01] MEDS: ESCITALOPRAM OXALATE 10 MG TAB PO SCH (10:13)
[2017-06-01] MEDS: BECLOMETHASONE QVAR 40 MDI IH SCH ×2 (10:27→10:56)
--- NOTE | 2017-06-01 10:42 | SOAPPROG ---
SOAP Progress Note Assessment/Plan: Assessment/Plan: - still having pain but able to walk and tolerating diet, pain "in left groin" this AM - path underwhelming, showed nothing frankly pathologic. - Ordered CT with PO and IV contrast, also ordered stool PCR given eosinophils in path but with mucus in stool could be parasite versus other infectious etiology - 05/31/17 08:59 06/01/17 10:41 Subjective: still having pain Objective: Vital Signs Temp Pulse Resp BP Pulse Ox 37.1 C 74 16 129/61 H 93 06/01/17 09:45 06/01/17 09:45 06/01/17 09:45 06/01/17 09:45 06/01/17 09:45 Laboratory Results 05/26/17 04:19 05/25/17 14:00 05/31/17 06/01/17 06/02/17 05:59 05:59 05:59 Intake Total 1250 1100 Balance 1250 1100 ICD10 Worksheet Patient Problems: Problems Problem Status Onset Abdominal pain Acute
--- NOTE | 2017-06-01 10:52 | ASMTCMCOM ---
CM Note CM Note Notes: Patient still complaining of abdominal pain although pathology has been unremarkable. An abdominal CT with PO and IV contrast is ordered for today, as well as a stool PCR to r/o infectious etiology. Patient is ambulating and tolerating PO. Independent discharge anticipated, but CM available for any needs. Date Signed: 06/01/2017 10:51 AM Electronically Signed By:Nancy Ansari RN
[2017-06-01] MEDS ORDERED: IOPAMIDOL (ISOVUE-300) 100 ML BTL ONE (12:30)
--- NOTE | 2017-06-01 16:24 | ASMTCMCOM ---
CM Note CM Note Notes: This patient became a very complicated case today. First, her son called me and said that he has been repeatedly told that someone would call him regarding his mother's condition. I took his number (which was incorrect in the patient's demographics, is correct now) and gave it to his RN Aliyah and left a message for Dr Hairston, asking them both to call him. I then was told by multiple RNs on the floor - and it was unclear if this was their opinion or that of the patient - that patient has been staying in the hospital simply to await a biopsy result, which she could be doing at home. They wondered if something could be done to address this. My understanding from today's provider notes was that patient was to have an abdomen CT to address her ongoing pain issues. I then was asked by KIRIT Valenzuela to call patient's private pay RN/friend Maryana Phelan for the above reasons. I called Maryana who told me that patient has been upset, doesn't know why she's there, is racking up thousands of dollars in debt, and could be better off taking her medications and waiting for biopsy results at home. I assured Maryana that I would have a financial counselor follow up with patient (I spoke to Lilia in who will f/u with patient) and that I would have her screened for KEENAN (referral sent to [facility]). I also told Maryana we would call her when patient was discharged. I then spoke with Dr Isela Hampton to try and understand this case better. She said that awaiting biopsy results were not the only reason patient had been kept inpatient but also to address her uncharacteristic pain control issues. She said that she and Dr Hairston needed to discuss today's CT results and that patient would likely be discharged tomorrow. Finally, I went to talk to patient herself. She began to immediately perseverate on the fact that on one was telling her or had told her anything about her condition. She thought I was witholding information from her, she said that no one told her anything about her CT results, and she became emotional and aggressive. It was difficult to communicate to her, although I tried to tell her that I had spoken with her son and her friend/RN Maryana. I explained to patient that I was trying to coordinate her care with her family and doctors, but she wasn't able to hear me. Due to my inability to calm patient down, I had to leave the room. I paged the patient customer assistance representative twice but did not hear back. CM will follow up tomorrow. Date Signed: 06/01/2017 04:23 PM Electronically Signed By:Nancy Ansari RN
[2017-06-01 17:11] VITALS: BP 135/85; PULSE 53; TEMP 97.8; O2SAT 95
--- NOTE | 2017-06-01 17:18 | SOAPPROG ---
SOAP Progress Note Assessment/Plan: Assessment: Plan: 05/25/17 19:17 Abdominal pain: Admitted for further evaluation. CT scan done earlier today suggestive of mass. Full report not yet dictated, but is not strongly suggestive of diverticulitis. Remains afebrile and WBC normal. Will contact GI tomorrow for colonoscopy. Will change to clear liquid diet. Heme positive stool: likely related to CT findings. No anemia on yesterday's labs, but mild anemia today, likely dilutional. TBI: remote hx, but she will have some difficulty speaking at times, especially when anxious. She has been on disability for many years. Takes Concerta 36mg 2 each morning, but that is not available here and she didn't bring in her own medication. Will try ritalin SR 40mg in the morning, which is about 1/2 the equivalent dose, per pharmacy, and see how she does. She reports that she hasn' t felt well on ritalin in the past, but that may have been the rapid acting form. Chronic pain: this is managed with oxycodone 15 mg qid, neurontin 300mg 3-4 times daily, and baclofen 20mg daily Migraine: currently without WILBURN. Takes Maxalt prn Depression: On Lexapro 20mg daily Anxiety: on clonazepam .5mg 1-2 tabs bid Asthma: well-controlled on QVAR with prn albuterol, which she rarely needs DVT Prophylaxis: will use SCDS Dispo: anticipate minimum of 2 MN 05/25/17 19:20 05/25/17 19:26 05/25/17 19:29 05/25/17 19:29 05/26/17 09:10 Abdominal pain: somewhat worse this morning. CT scan concerning for malignancy. Am waiting for call back from GI to advise of consult request. Will also ask surgery to consult. TBI: Would like her Concerta, which helps her make decisions. She will have her friend bring it in from home. 06/01/17 09:11 Abdominal pain: persistant, not so well managed by her usual oxycodone regimen, but worried about taking more and then potentially withdrawing once she goes home. Will talk with Dr. Hairston today regarding potential for surgery. 06/01/17 09:13 Subjective: Addendum to previous note: Extended discussion with pt regarding CT results, which are improved from the original scan done on admission. She doesn't have a surgical issue at this point, though is still having pain. PCR was negative for infection. I've discussed possible discharge with Dr. Hairston, and with pt. She is in agreement with this. I will increase her pain medication for now, and hopefully the need for the extra medication will resolve as her colon heals. She is no longer having any blood per rectum. Sx appear most likely related to colitis, and this appears to be resolving on CT scan. I will see her in the office on Jun 08. Dr. Weber would like to see her in 6 weeks to discuss follow up colonoscopy. Objective: Vital Signs Temp Pulse Resp BP Pulse Ox 36.7 C 75 16 132/71 H 92 06/01/17 15:43 06/01/17 15:43 06/01/17 15:43 06/01/17 15:43 06/01/17 15:43 Microbiology 06/01/17 11:27 Gastrointestinal Tract Panel (PCR) - Final Stool No Organism Detected Laboratory Results 05/26/17 04:19 05/25/17 14:00 05/31/17 06/01/17 06/02/17 05:59 05:59 05:59 Intake Total 1250 1100 Balance 1250 1100 ICD10 Worksheet Patient Problems: Problems Problem Status Onset Abdominal pain Acute
--- NOTE | 2017-06-02 06:16 | GDS ---
[f rep st] DISCHARGE SUMMARY DISCHARGE DIAGNOSIS: Abdominal pain, sigmoid colitis. CONSULTATIONS: Gastroenterology, Dr. Weber; surgery, Dr. Hairston. HOSPITAL COURSE: Please see HPI for full details. The patient was admitted for abdominal pain. A CT scan done on admission showed focal wall thickening involving the sigmoid colon. GI was consulted and colonoscopy performed. An area of the sigmoid colon showed moderately congested erythematous eroded granular mucosa concerning for possible ischemic colitis. Surgery was thus consulted as well. The patient's pain persisted. Unfortunately, her biopsy results took several days to return, but subsequently only showed a very minimal abnormality. Thus, a CT scan was repeated on June 01, which showed significant improvement in the sigmoid wall thickening consistent with improving sigmoid colitis. Surgery was not felt to be necessary. These findings were reviewed extensively with the patient and she is in agreement with discharge. Unfortunately, her pain is not much improved yet, so we will give additional pain medications for breakthrough and follow closely as an outpatient. She will follow up with me next week in the office and in [address] Weber for possible repeat colonoscopy. /[id number]/MODL MTDD
--- NOTE | 2017-06-02 12:32 | ASDISCHSUM ---
Discharge Information Plan Status:Has needs-TBD Medically Cleared to Leave: Discharge Date:06/01/2017 05:53 PM CM D/C Disposition: ADT D/C Disposition:Home, Routine, Self-Care Projected Discharge Date:06/01/2017 05:53 PM Transportation at D/C: Discharge Delay Reason: Follow-Up Date:06/01/2017 05:53 PM Discharge Slot: Final Diagnosis: Placement Information Patient Contact Information Contact Name:ABE Relationship:Shaq Address: Work Phone: City: [facility] Phone: State/Zip Code: Email: Financial Information Financial Class:Medicare Advantage Plans Primary Plan Desc:[facility] ADVANTAGE PLANS Primary Plan Number:[id number] Secondary Plan Desc: Secondary Plan Number: Assessment Information BC CM Progress Note CM Note CM Note Notes: Pt admitted for abd pain. Ct scan suggestive of mass. Colonoscopy is planned tomorrow. C/M will continue to follow for DC needs. Date Signed: 05/26/2017 04:04 PM Electronically Signed By:Leti Acosta LCSW [facility] CM Progress Note CM Note CM Note Notes: 05/29/2017 Case Management Note Reviewed chart. Case Management d/c needs remain unclear. Pt may require surgical intervention pending biopsy results. There are no PT or OT evals ordered at this time. Case Management d/c poc: TBD Case Management to follow. Date Signed: 05/29/2017 09:37 AM Electronically Signed By:Heather Brownlee RN [facility] CM Progress Note CM Note CM Note Notes: Patient still complaining of abdominal pain although pathology has been unremarkable. An abdominal CT with PO and IV contrast is ordered for today, as well as a stool PCR to r/o infectious etiology. Patient is ambulating and tolerating PO. Independent discharge anticipated, but CM available for any needs. Date Signed: 06/01/2017 10:51 AM Electronically Signed By:Nancy Ansari RN [facility] Progress Note CM Note CM Note Notes: This patient became a very complicated case today. First, her son called me and said that he has been repeatedly told that someone would call him regarding his mother's condition. I took his number (which was incorrect in the patient's demographics, is correct now) and gave it to his RN Aliyah and left a message for Dr Hairston, asking them both to call him. I then was told by multiple RNs on the floor - and it was unclear if this was their opinion or that of the patient - that patient has been staying in the hospital simply to await a biopsy result, which she could be doing at home. They wondered if something could be done to address this. My understanding from today's provider notes was that patient was to have an abdomen CT to address her ongoing pain issues. I then was asked by KIRIT Valenzuela to call patient's private pay RN/friend Maryana Phelan for the above reasons. I called Maryana who told me that patient has been upset, doesn't know why she's there, is racking up thousands of dollars in debt, and could be better off taking her medications and waiting for biopsy results at home. I assured Maryana that I would have a financial counselor follow up with patient (I spoke to Lilia in who will f/u with patient) and that I would have her screened for KEENAN (referral sent to [employer]). I also told Maryana we would call her when patient was discharged. I then spoke with Dr Isela Hampton to try and understand this case better. She said that awaiting biopsy results were not the only reason patient had been kept inpatient but also to address her uncharacteristic pain control issues. She said that she and Dr Hairston needed to discuss today's CT results and that patient would likely be discharged tomorrow. Finally, I went to talk to patient herself. She began to immediately perseverate on the fact that on one was telling her or had told her anything about her condition. She thought I was witholding information from her, she said that no one told her anything about her CT results, and she became emotional and aggressive. It was difficult to communicate to her, although I tried to tell her that I had spoken with her son and her friend/RN Maryana. I explained to patient that I was trying to coordinate her care with her family and doctors, but she wasn't able to hear me. Due to my inability to calm patient down, I had to leave the room. I paged the patient sales representative gas service twice but did not hear back. CM will follow up tomorrow. Date Signed: 06/01/2017 04:23 PM Electronically Signed By:Nancy Ansari RN Intervention Information Intervention Type:*Incorrect Registration Date of Service:05/26/2017 07:41 AM Patient Type:Observation Staff Member:KIRIT Quiroz, Claudia Hours: Discipline: Severity: Comment:
== END 2017-06-01 17:53 | disposition home or self-care (01) | DRG 392 ==
LOC: OBSVTOIN 12:30 → F1N 12:30 → UNDOADMOB 12:34 → F1N 12:34
PROVIDERS: ADMIT Internal Medicine; ATTEND Internal Medicine
PROC: 0DBN8ZX Excision of Sigmoid Colon, Via Natural or Artificial Opening Endoscopic, Diagnostic (ICD-10-PCS; principal; 2017-05-27 13:30)
DX: K52.9 Noninfective gastroenteritis and colitis, unspecified (principal); G89.29 Other chronic pain; F11.20 Opioid dependence, uncomplicated; F41.9 Anxiety disorder, unspecified; F32.9 Major depressive disorder, single episode, unspecified; K21.9 Gastro-esophageal reflux disease without esophagitis; J45.909 Unspecified asthma, uncomplicated; Z87.820 Personal history of traumatic brain injury
CPT/HCPCS: J3010; Q9967